=== PATIENT | male | born 1960 | race Caucasian/White ===

== ENCOUNTER 2021-12-17 14:51 | Observation (INO) ==
[2021-12-17 15:36] LABS: Basophils # 0.1 K/mcL (0.0-0.2); Basophils % 0.7 %; Eosinophils # 0.4 K/mcL (0.0-0.6); Eosinophils % 4.1 %; Hemoglobin 15.6 g/dL (12.9-16.9); Immature Granulocytes % 0.3 % (0-4); Lymphocytes # 1.7 K/mcL (0.6-4.6); Lymphocytes % 19.6 %; Mean Corpuscular HGB Conc 32.5 g/dL (31.6-35.5); Mean Corpuscular Hemoglobin 27.9 pg (28.0-33.3); Mean Corpuscular Volume 85.9 fL (83.0-100.0); Mean Platelet Volume 9.7 fL (9.4-12.4); Monocytes # 0.7 K/mcL (0.0-1.3); Monocytes % 7.5 %; Platelet Count 292 K/mcL (140-400); Red Blood Count 5.59 M/mcL (4.19-5.50); Red Cell Distribution Width 12.5 % (11.5-14.5); Segmented Neutrophils % 67.8 %; White Blood Count 8.8 K/mcL (4.3-11.1)
[2021-12-17 15:51] LABS: Alanine Aminotransferase 18 Units/L (7-52); Albumin 4.5 g/dL (3.5-5.7); Albumin/Globulin Ratio 1.6 (1.1-2.2); Alkaline Phosphatase 95 Units/L (34-104); Aspartate Amino Transferase 13 Units/L (13-39); BUN/Creatinine Ratio 28 (6-26); Bilirubin,Total 1.2 mg/dL (0.3-1.0); Blood Urea Nitrogen 54 mg/dL (6-20); Calcium 10.6 mg/dL (8.6-10.3); Carbon Dioxide 28 mEq/L (23-29); Chloride 106 mEq/L (98-107); Globulin 2.8 g/dL (2.4-3.5); Glucose 108 mg/dL (70-105); Magnesium 2.1 mg/dL (1.6-2.6); Osmolality,Calculated 307 (280-300); Potassium 5.4 mEq/L (3.5-5.1); Sodium 141 mEq/L (136-145); Total Protein 7.3 g/dL (6.4-8.9); eGFR For African Americans 43 (> 60); eGFR For Non-African Americans 36 (> 60)
[2021-12-17 15:52] LABS: INR 1.3; Prothrombin Time 14.1 Seconds (9.4-12.1)
[2021-12-17 15:54] LABS: Troponin I < 0.03 ng/mL (< 0.04)
[2021-12-17] MEDS ORDERED: 0.9 % Sodium Chloride 1,000 ML IVC ONE (16:27)
[2021-12-17] MEDS ORDERED: Ondansetron 4 MG/2 ML VIAL IVP PRN (17:10)
[2021-12-17] MEDS ORDERED: Acetaminophen 325 MG TABLET PO PRN (17:10)
[2021-12-17] MEDS ORDERED: MOM Conc 10 ML UD.LIQ PO PRN (17:10)
[2021-12-17] MEDS ORDERED: Mag Hydrox/Al Hydrox/Simeth 30 ML UDC PO PRN (17:10)
[2021-12-17] MEDS ORDERED: Naloxone 0.4 MG/ML INJ IVP PRN (17:10)
[2021-12-17] MEDS ORDERED: Melatonin 3 MG TABLET PO PRN (17:10)
[2021-12-17 19:07] LABS: Bilirubin,Urine Negative (Negative); Blood,Urine Negative (Negative); Clarity,Urine Clear (Clear); Color,Urine Yellow (Yellow); Glucose,Urine (UA) Normal (Normal); Ketones,Urine Negative (Negative); Leukocyte Esterase,Urine Negative (Negative); Nitrite,Urine Negative (Negative); PH,Urine 5.5 pH Units (5.0-8.0); Protein,Urine Negative (Neg-Trace); Specific Gravity,Urine 1.015 (1.010-1.025); Urobilinogen,Urine Normal (Normal)
[2021-12-17] MEDS: 0.9 % Sodium Chloride 1,000 ML IVC SCH (20:33)
[2021-12-17] MEDS: carvediloL 6.25 MG TABLET PO SCH (20:36)
[2021-12-18] MEDS: carvediloL 6.25 MG TABLET PO SCH (07:43)
[2021-12-18 09:23] LABS: Basophils % 0.4 %; Eosinophils # 0.4 K/mcL (0.0-0.6); Eosinophils % 4.2 %; Hematocrit 43.4 % (37.5-50.1); Hemoglobin 14.1 g/dL (12.9-16.9); Immature Granulocytes % 0.3 % (0-4); Lymphocytes # 1.7 K/mcL (0.6-4.6); Lymphocytes % 18.9 %; Mean Corpuscular HGB Conc 32.5 g/dL (31.6-35.5); Mean Corpuscular Hemoglobin 27.9 pg (28.0-33.3); Mean Corpuscular Volume 85.9 fL (83.0-100.0); Mean Platelet Volume 9.7 fL (9.4-12.4); Monocytes # 0.7 K/mcL (0.0-1.3); Monocytes % 7.2 %; Neutrophils # 6.3 K/mcL (1.6-8.9); Platelet Count 263 K/mcL (140-400); Red Blood Count 5.05 M/mcL (4.19-5.50); Red Cell Distribution Width 12.6 % (11.5-14.5); White Blood Count 9.1 K/mcL (4.3-11.1)
[2021-12-18] MEDS: Famotidine 20 MG TABLET PO SCH (09:28)
[2021-12-18] MEDS: Aspirin Enteric Coated 81 MG Tablet PO SCH (09:28)
[2021-12-18 09:48] LABS: Calcium 9.5 mg/dL (8.6-10.3); Potassium 4.1 mEq/L (3.5-5.1)
[2021-12-18] MEDS: 0.9 % Sodium Chloride 1,000 ML IVC SCH (10:31)
[2021-12-19 03:39] VITALS: PULSE 55
[2021-12-19 07:07] VITALS: BP 147/82; RESP 17; TEMP 98.2; O2SAT 94
[2021-12-19] MEDS: Famotidine 20 MG TABLET PO SCH (07:38)
[2021-12-19] MEDS: Aspirin Enteric Coated 81 MG Tablet PO SCH (07:38)
[2021-12-19 08:01] LABS: Basophils % 0.4 %; Eosinophils # 0.4 K/mcL (0.0-0.6); Eosinophils % 3.8 %; Hematocrit 44.6 % (37.5-50.1); Hemoglobin 14.6 g/dL (12.9-16.9); Immature Granulocytes % 0.2 % (0-4); Lymphocytes # 1.7 K/mcL (0.6-4.6); Lymphocytes % 15.6 %; Mean Corpuscular HGB Conc 32.7 g/dL (31.6-35.5); Mean Corpuscular Hemoglobin 27.7 pg (28.0-33.3); Mean Corpuscular Volume 84.5 fL (83.0-100.0); Mean Platelet Volume 9.7 fL (9.4-12.4); Monocytes # 1.1 K/mcL (0.0-1.3); Monocytes % 10.4 %; Neutrophils # 7.5 K/mcL (1.6-8.9); Platelet Count 263 K/mcL (140-400); Red Blood Count 5.28 M/mcL (4.19-5.50); Red Cell Distribution Width 12.7 % (11.5-14.5); Segmented Neutrophils % 69.6 %; White Blood Count 10.8 K/mcL (4.3-11.1)
[2021-12-19 08:10] LABS: BUN/Creatinine Ratio 26 (6-26); Blood Urea Nitrogen 31 mg/dL (6-20); Calcium 10.4 mg/dL (8.6-10.3); Carbon Dioxide 24 mEq/L (23-29); Chloride 105 mEq/L (98-107); Glucose 96 mg/dL (70-105); Osmolality,Calculated 294 (280-300); Potassium 4.1 mEq/L (3.5-5.1); Sodium 139 mEq/L (136-145); eGFR For African Americans > 60 (> 60); eGFR For Non-African Americans > 60 (> 60)
== END 2021-12-19 15:00 | disposition home health service (06) ==
LOC: INPPIK 14:51 → EMEROOPIK 14:51 → INPPIK 17:41
PROVIDERS: ADMIT Internal Medicine; ATTEND Internal Medicine